=== PATIENT | male | born 1960 | race Caucasian/White ===

== ENCOUNTER 2020-01-04 15:20 | Emergency (ER) | payer MEDICAID ==
[~2020-01-04] VITALS: Ht 177.8 cm; Wt 72.6 kg
--- NOTE | 2020-01-04 15:40 | NUR ---
FRIEND CALLED 911; HE HAS BEEN DRINKING FOR A COUPLE OF DAYS BEEN DEPRESSED, HE WAS PICKED UP FROM HIS [place]; IZ=[id number]. PATIENT RESPONSIVE TO STIMULI. NO DISTRESS NOTED, ATTACHED TO THE [employer]IVE [employer]ER.
--- NOTE | 2020-01-04 16:55 | NUR ---
SISTERS GRETCHEN PHONE # [phone] FRIEND ALVA PHONE# [phone]
--- NOTE | 2020-01-04 17:02 | NUR ---
Patient awake and alert, stated he's feeling depressed, but is not suicidal at this time.
[2020-01-04 18:03] LABS: BASOPHILS % (AUTO) 0.6 % (0.0-2.0); HEMATOCRIT 44 % (39-51); HEMOGLOBIN 14.5 g/dL (13.5-17.5); LYMPHOCYTES # (AUTO) 2.3 /CMM (0.8-4.8); LYMPHOCYTES % (AUTO) 45.2 % (20.0-44.0); MEAN CORPUSCULAR HGB CONC 33 g/dl (31.0-36.0); MEAN CORPUSCULAR VOLUME 94 fL (80-96); MONOCYTES # (AUTO) 0.4 /CMM (0.1-1.30); MONOCYTES % (AUTO) 7.7 % (2.0-12.0); NEUTROPHILS # (AUTO) 2.4 /CMM (1.8-8.9); NEUTROPHILS % (AUTO) 46.5 % (43.0-81.0); PLATELET COUNT (AUTO) 195 /CMM (150-450); RED BLOOD CELL COUNT(AUTO) 4.66 MIL/uL (4.5-6.0); WHITE BLOOD COUNT (AUTO) 5.1 K/uL (4.3-11.0)
[2020-01-04 18:08] LABS: CALCIUM, SERUM 8.4 mg/dL (8.5-10.1); CREATININE 0.9 mg/dL (0.6-1.3); POTASSIUM 3.5 mmol/L (3.5-5.1)
[2020-01-04 18:14] LABS: ALBUMIN 4.1 g/dL (3.4-5.0); BILIRUBIN,DIRECT 0.2 mg/dL (0.0-0.2); BILIRUBIN,TOTAL 0.6 mg/dL (0.2-1.0); TOTAL PROTEIN, SERUM 8.3 g/dL (6.4-8.2)
--- NOTE | 2020-01-04 19:22 | NUR ---
REPORT GIVEN TO JAVIER/MUNDO REDDY.
--- NOTE | 2020-01-04 19:25 | NUR ---
RECEIVED REPORT FROM MAUREEN SAWYER. PT RESTING AT THIS TIME.
--- NOTE | 2020-01-04 19:40 | NUR ---
PT MOVED TO ER BED 14. PT WITH ALL PERSONAL BELONGINGS.
--- NOTE | 2020-01-04 19:58 | NUR ---
PT PASSED ROAD TEST. DR. INEZ TURNER.
--- NOTE | 2020-01-04 20:19 | NUR ---
Patient discharged to home in stable condition. Written and verbal after care instructions given. Patient verbalizes understanding of instruction.
[2020-01-04 20:41] VITALS: BP 141/87
== END 2020-01-04 20:41 | disposition home or self-care (01) ==
LOC: ER 15:23
DX: F10.129 Alcohol abuse with intoxication, unspecified (principal); Y90.8 Blood alcohol level of 240 mg/100 ml or more
CPT/HCPCS: 36415; 80048-TC; 80076-TC; 83690-TC; 85025-TC; G0480